=== PATIENT | female | born 1980 | race Caucasian/White ===

== ENCOUNTER 2019-05-11 01:06 | Emergency (ER) | payer MEDICARE, OTHER ==
[~2019-05-11] VITALS: Ht 172.7 cm; Wt 63.6 kg
[2019-05-11 01:11] VITALS: Ht 172.7 cm; Wt 63.6 kg
[2019-05-11] MEDS ORDERED: ONDANSETRON (ODT) 4 MG TAB ODT STA (03:42)
[2019-05-11] MEDS ORDERED: HYDROCODONE/APAP (5/325) TAB PO ONE (04:00)
--- NOTE | 2019-05-11 04:03 | ERD ---
ER Documentation Chief Complaint Chief Complaint BODY PAIN X'S 6 DAYS HPI 38-year-old female who presents the emergency room complaining of entire body pain for at least 6 days. She denies any fevers or chills, no extreme exercise, no cholesterol medications. Patient states that she feels weak and cannot walk though she was observed walking into the emergency room with EMS without difficulty. Patient is asking for pain medication. She denies any headache chest pain or shortness of breath. ROS All systems reviewed and are negative except as per history of present illness. Allergies Allergies: Coded Allergies: NSAIDS (Non-Steroidal Anti-Inflamma (Verified Allergy, Unknown, 05/11/19) Penicillins (Verified Allergy, Unknown, 05/11/19) aspirin (Verified Allergy, Unknown, 05/11/19) levofloxacin (Verified Allergy, Unknown, 05/11/19) PMhx/Soc Hx Miscellaneous Medical Probl: Yes (UTERINE FIBROIDS) Hx Alcohol Use: No Hx Substance Use: No Hx Tobacco Use: No Smoking Status: Never smoker FmHx Family History: No diabetes Physical Exam Vitals Vital Signs Date Temp Pulse Resp B/P (MAP) Pulse Ox O2 O2 Flow FiO2 Time Delivery Rate 05/11/19 98.1 80 18 133/83 98 Room Air 03:30 (100) 05/11/19 98.1 108 18 178/89 97 01:11 (118) Physical Exam General: Disheveled, no acute distress Head: Normocephalic, atraumatic. Eyes: EOM intact ENT: Moist mucous membranes Neck: Full ROM Respiratory: No respiratory distress Cardiovascular: Well perfused distally Abdominal: Nondistended : Deferred MSK: No edema, no unilateral swelling, 5/5 strength Neurologic: Alert and oriented, moving all extremities, normal speech, steady gait Skin: No rash Psych: Normal mood Results 24 hrs Current Medications Medications Dose Sig/Desi Start Time Status Last (Trade) Ordered Route PRN Stop Time Admin Dose Reason Admin 1 tab ONCE ONCE 05/11/19 05/11/19 Acetaminophen PO 04:00 03:50 / 05/11/19 04:01 Hydrocodone Bitart ([place] (5/325)) Ondansetron 4 mg ONCE STAT 05/11/19 DC 05/11/19 HCl (Zofran ODT 03:42 03:50 Odt) 05/11/19 03:46 Procedures/MDM Patient has whole body pain. Unclear etiology but unlikely serious etiology. 6 days of symptoms with normal vital signs. No risk factors for rhabdomyolysis. No signs of infectious process. Suspect possibly malingering versus drug- seeking behavior. Patient given a single [place] given allergy list. 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 She is refusing. Patient does not have an emergent medical condition that warrants laboratory testing or diagnostic imaging. The patient can be safely discharged Homeless discharge process initiated. The patient does not have an identifiable emergent medical condition that warrants inpatient hospitalization at this time. The patient is deemed safe for discharge with outpatient follow-up. We discussed follow up with the patient's primary care doctor within 24 to 48 hours as needed. We also discussed return to the emergency room for worsening symptoms or worsening condition. Outpatient referral: None required Discharge Medications: None required Departure Diagnosis: Primary Impression: Whole body pain Additional Impression: Malingering Condition: Good Patient Instructions: Myalgias Referrals: [facility] YOU HAVE RECEIVED A MEDICAL SCREENING EXAM AND THE RESULTS INDICATE THAT YOU DO NOT HAVE A CONDITION THAT REQUIRES URGENT TREATMENT IN THE EMERGENCY DEPARTMENT. FURTHER EVALUATION AND TREATMENT OF YOUR CONDITION CAN WAIT UNTIL YOU ARE SEEN IN YOUR DOCTORS OFFICE WITHIN THE NEXT 1-2 DAYS. IT IS YOUR RESPONSIBILITY TO MAKE AN APPOINTMENT FOR FOLOW-UP CARE. IF YOU HAVE A PRIMARY DOCTOR --you should call your primary doctor and schedule an appointment IF YOU DO NOT HAVE A PRIMARY DOCTOR YOU CAN CALL OUR PHYSICIAN REFERRAL HOTLINE AT IF YOU CAN NOT AFFORD TO SEE A PHYSICIAN YOU CAN CHOSE FROM THE FOLLOWING [facility] [address] [facility] [address] [facility] [address] [facility] [address] [facility] [address] [facility]. [facility]. [address] [facility]. [facility] YOU HAVE RECEIVED A MEDICAL SCREENING EXAM AND THE RESULTS INDICATE THAT YOU DO NOT HAVE A CONDITION THAT REQUIRES URGENT TREATMENT IN THE EMERGENCY DEPARTMENT. FURTHER EVALUATION AND TREATMENT OF YOUR CONDITION CAN WAIT UNTIL YOU ARE SEEN IN YOUR DOCTORS OFFICE WITHIN THE NEXT 1-2 DAYS. IT IS YOUR RESPONSIBILITY TO MAKE AN APPOINTMENT FOR FOLOW-UP CARE. IF YOU HAVE A PRIMARY DOCTOR --you should call your primary doctor and schedule and appointment IF YOU DO NOT HAVE A PRIMARY DOCTOR YOU CAN CALL OUR PHYSICIAN REFERRAL HOTLINE AT . IF YOU CAN NOT AFFORD TO SEE A PHYSICIAN YOU CAN CHOSE FROM THE FOLLOWING [facility] INSTITUTIONS: [facility] [address] [place] [address] [facility] [address] [place] [address] [facility] [address] [place] [address] Additional Instructions: Call your primary care doctor TOMORROW for an appointment during the next 1 WEEK.Tell the vice president tax that you were referred from this facility.See the doctor sooner or return here if your condition worsens before your appointment time. JORJE CLAROS MD May 11, 2019 04:03
[2019-05-11 04:29] VITALS: BP 113/80; PULSE 87; RESP 22
== END 2019-05-11 04:29 | disposition home or self-care (01) ==
LOC: E/R 01:06
DX: R52 Pain, unspecified (principal); Z76.5 Malingerer [conscious simulation]
CPT/HCPCS: 99283